=== PATIENT | female | born 1965 | race Caucasian/White ===

== ENCOUNTER 2018-07-14 19:06 | Emergency (ER) | payer MEDICARE, MEDICAID ==
[~2018-07-14] VITALS: Ht 172.7 cm; Wt 63.6 kg
--- NOTE | 2018-07-14 19:40 | NUR ---
Pt. accompainied by family, "Mom" is sitting with Pt..
[2018-07-14] MEDS ORDERED: LORazepam 1 MG tablet PO ONE (20:50)
[2018-07-14 21:27] LABS: ALANINE AMINOTRANSFERASE 44 U/L (12-78); ALBUMIN 3.8 G/DL (3.4-5.0); ALBUMIN/GLOBULIN RATIO 1.1 (1.1-1.5); ALKALINE PHOSPHATASE 139 IU/L (46-116); ANION GAP 11 (8-16); ASPARTATE AMINO TRANSFERASE 32 U/L (10-37); BILIRUBIN,TOTAL 0.2 MG/DL (0.1-1.0); BLOOD UREA NITROGEN 11 MG/DL (7-18); BUN/CREATININE RATIO 13.9 (6.6-38.0); CALCIUM 9.2 MG/DL (8.5-10.1); CHLORIDE 104 MMOL/L (99-107); CREATININE 0.79 MG/DL (0.40-0.90); GLUCOSE 106 MG/DL (70-104); POTASSIUM 4.1 MMOL/L (3.5-5.1); SODIUM 140 MMOL/L (135-145); TOTAL CARBON DIOXIDE 24.9 MMOL/L (24-32); TOTAL PROTEIN 7.3 G/DL (6.4-8.2); eGFR 77 ML/MIN
[2018-07-14 21:29] LABS: BASOPHILS % (AUTO) 0.3 % (0-1); EOSINOPHILS # (AUTO) 0.3 X10'3 (0-0.9); EOSINOPHILS % (AUTO) 5.8 % (0-6); HEMATOCRIT 40.1 % (35.0-45.0); HEMOGLOBIN 13.7 g/dl (12.0-16.0); LYMPHOCYTES # (AUTO) 1.5 X10'3 (1.1-4.8); LYMPHOCYTES % (AUTO) 26.4 % (21-51); MEAN CORPUSCULAR HEMOGLOBIN 32.5 PG (27.0-31.0); MEAN CORPUSCULAR HGB CONC 34.1 g/dL (33.0-36.5); MEAN CORPUSCULAR VOLUME 95.1 FL (78-98); MEAN PLATELET VOLUME 9.1 FL (7.4-10.4); MONOCYTES # (AUTO) 0.4 X10'3 (0-0.9); MONOCYTES % (AUTO) 6.6 % (2-12); NEUTROPHILS # (AUTO) 3.5 X10'3 (1.8-7.7); NEUTROPHILS % (AUTO) 60.9 % (42-75); PLATELET COUNT 158 X10'3 (140-440); RED BLOOD COUNT 4.22 X10'6 (4.20-5.60); RED CELL DISTRIBUTION WIDTH 14.1 % (11.5-14.5); WHITE BLOOD COUNT 5.7 X10'3 (4.5-11.0)
[2018-07-14 21:35] LABS: ETHANOL 0.176 GM/DL (0.0-0.010)
[2018-07-14 21:36] LABS: ACETAMINOPHEN < 2.0 UG/ML (10-30)
[2018-07-14] MEDS: gabapentin 300mg capsule PO SCH (21:40)
[2018-07-14] MEDS ORDERED: FLUO10CA28 PO (21:50)
[2018-07-14] MEDS ORDERED: PANT20TA3 PO (21:51)
[2018-07-14] MEDS ORDERED: ONDA4TAB6 PO (21:51)
[2018-07-14] MEDS ORDERED: CHLO25CA10 PO (21:51)
--- NOTE | 2018-07-14 21:52 | NUR ---
Pt in the RAP room with her mother.
--- NOTE | 2018-07-14 21:53 | NUR ---
Last alcohol consumption . Today she drank a whole bunch of vanilla that has alcohol in it.
[2018-07-14 22:23] LABS: URINE HCG NEGATIVE (NEG)
[2018-07-14 22:25] LABS: CLARITY,URINE CLEAR (Clear); COLOR,URINE YELLOW (Yellow); GLUCOSE, URINE NEGATIVE (Neg); KETONES,URINE NEGATIVE (Neg); LEUKOCYTE ESTERASE ,URINE NEGATIVE (Neg); NITRITES, URINE NEGATIVE (Neg); OCCULT BLOOD,URINE TRACE-INTACT (Neg); PH,URINE 5.5 (4.8-8.0); PROTEIN,URINE NEGATIVE (Neg); UROBILINOGEN,URINE 0.2 E.U/dL (0.2-1.0)
[2018-07-14 22:26] LABS: URINE AMPHETAMINE SCREEN POSITIVE (Neg); URINE BARBITUATE SCREEN NEGATIVE (Neg); URINE BENZODIAZEPINES SCREEN POSITIVE (Neg); URINE CANNABINOID SCREEN POSITIVE (Neg); URINE COCAINE SCREEN NEGATIVE (Neg); URINE METHADONE SCREEN NEGATIVE (Neg); URINE OPIATE SCREEN NEGATIVE (Neg); URINE PHENCYCLIDINE SCREEN NEGATIVE (Neg)
[2018-07-14 22:31] LABS: UA COLLECTION TYPE CLN CATCH MIDSTREAM
[2018-07-14 22:33] LABS: BACTERIA,URINE FEW /HPF (Neg); RBC,URINE 0-2 /HPF (0-2); SQUAMOUS EPITHELIAL CELL,UR FEW /LPF (FEW); WBC,URINE 0-4 /HPF (0-4)
--- NOTE | 2018-07-14 22:37 | NUR ---
Arrived in overflow accompanied by Mom. Pt crying. Changed clothes to hospital scrubs all belongings sent home with Mom.
--- NOTE | 2018-07-15 00:04 | NUR ---
Pt sleeping waiting for Tele psych
[2018-07-15] MEDS ORDERED: ondansetron 4mg rapidly disintigrating tab PO PRN (00:05)
--- NOTE | 2018-07-15 02:32 | NUR ---
Pt awakened briefly and informed her tele psych will be soon. Pt cooperative verbalized understanding. Pt sleeping at this time.
--- NOTE | 2018-07-15 04:39 | NUR ---
Pt sleeping. Tele psych done waiting for report.
--- NOTE | 2018-07-15 06:45 | NUR ---
REPORT RECEIVED, CARE ASSUMED. PT SLEEPING IN HOSPITAL BED IN NO NOTED DISTRESS. WILL ASSESS WHEN AWAKE FOR BREAKFAST
[2018-07-15] MEDS: pantoprazole 40mg Tablet.DR PO SCH (07:46)
[2018-07-15] MEDS: gabapentin 300mg capsule PO SCH ×4 (07:46→20:53)
[2018-07-15] MEDS ORDERED: FLUoxetine 20mg capsule PO SCH (08:00)
--- NOTE | 2018-07-15 08:20 | NUR ---
SAFETY BREAKFAST TRAY DELIVERED TO BEDSIDE
--- NOTE | 2018-07-15 11:09 | NUR ---
JOE, [facility] AT BEDSIDE EVALUATING PT
--- NOTE | 2018-07-15 12:30 | NUR ---
MOTHER HERE VISITING PT.
--- NOTE | 2018-07-15 12:44 | NUR ---
PT REQUESTING SOMETHING FOR ANXIETY, DR NEVAREZ NOTIFIED THAT PT WAS PLACED ON A 5150 HOLD AND IS REQUESTING MEDICATION. DR NEVAREZ REQUESTED THAT PT BE EVALUATED BY [facility] FOR FURTHER PSYCH MED NEEDS. CALL MADE TO [facility] FOR THEIR PA TO COME DOWN AND EVALUATE PT REQUESTED BY DR NEVAREZ
--- NOTE | 2018-07-15 13:15 | NUR ---
SAFETY LUNCH TRAY DELIVERED TO BEDSIDE
[2018-07-15] MEDS ORDERED: hydrOXYzine 25 MG tablet PO PRN (17:55)
[2018-07-15] MEDS ORDERED: risperiDONE 0.5mg tablet PO SCH (21:00)
[2018-07-15] MEDS ORDERED: lithium carbonate 150mg capsule PO SCH (21:00)
--- NOTE | 2018-07-15 21:00 | NUR ---
pt requested something for her anxiety. consulted with dr lima, verbal order for ativan, 1 mg, po, prn for anxiety. pt was given 1 mg ativan.
[2018-07-15] MEDS: LORazepam 1 MG tablet PO PRN (21:56)
--- NOTE | 2018-07-15 23:01 | NUR ---
pt is sleeping on back. rr wnl, will continue to monitor.
--- NOTE | 2018-07-15 23:59 | NUR ---
pt continues to sleep, no s/s of distress, will continue to monitor.
--- NOTE | 2018-07-16 01:52 | NUR ---
pt continues to sleep, no s/s of distress, rr unlabored. will continue to monitor.
--- NOTE | 2018-07-16 04:57 | NUR ---
PT IS SLEEPING, NO S/S OF DISTRESS NOTED.
--- NOTE | 2018-07-16 06:30 | NUR ---
Asleep upon change of shift observation. Undisturbed at this time.
[2018-07-16] MEDS: gabapentin 300mg capsule PO SCH ×2 (07:41→12:15)
[2018-07-16] MEDS: pantoprazole 40mg Tablet.DR PO SCH (07:41)
--- NOTE | 2018-07-16 08:30 | NUR ---
Awakened for breakfast and AM meds. Picked at her food. Meds administered as ordered. Patient states she remains suicidal. Has attempted suicide in the past by alcohol overdose. Presents as depressed with limited coping skills.
--- NOTE | 2018-07-16 09:27 | NUR ---
Call received from [facility] stating patient had been accepted for care at [facility]. Patient informed. Happy to hear this news.
[2018-07-16 09:29] VITALS: BP 104/72
--- NOTE | 2018-07-16 11:00 | NUR ---
Change in plans. Call received from [facility] office stating patient will now be going to [facility] in [place]. Patient informed of this change.
[2018-07-16] MEDS: LORazepam 1 MG tablet PO PRN (12:14)
--- NOTE | 2018-07-16 12:46 | NUR ---
[facility] HERE TO TAKE PT, PT GIVEN CLOTHING AND IS USING THE RESTROOM PRIOR TO TRANSPORT
== END 2018-07-16 13:00 ==
LOC: ER 19:08 → ED HOLD 07-16 11:16 → ER 07-16 11:16
DX: R45.851 Suicidal ideations (principal); F10.129 Alcohol abuse with intoxication, unspecified; F32.9 Major depressive disorder, single episode, unspecified; Z88.2 Allergy status to sulfonamides; Z79.899 Other long term (current) drug therapy; Y90.9 Presence of alcohol in blood, level not specified
CPT/HCPCS: 36415; 80053; 80305; 80320; 80329; 81001; 81025; 84443; 85025; 99285